=== PATIENT | male | born 2000 | race African-American/Black ===

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

== ENCOUNTER 2022-11-28 10:16 | Emergency (ER) | payer OTHER ==
[2022-11-28 10:19] VITALS: BP 131/77; PULSE 81; RESP 18; TEMP 98.1; BMI 31.8
== END 2022-11-28 11:15 | disposition home or self-care (01) ==
LOC: JERFT 10:16
PROC: 0H9BXZZ Drainage of Right Upper Arm Skin, External Approach (ICD-10-PCS; principal; 2022-11-28)
DX: L02.411 Cutaneous abscess of right axilla (principal)
CPT/HCPCS: 87070; 87205; 99283-25